=== PATIENT | male | born 1995 | race Caucasian/White ===

== ENCOUNTER 2021-03-21 12:38 | Emergency (ER) | payer OTHER, BC ==
--- NOTE | 2021-03-21 12:47 | EDM.PDOC ---
ED HPI GENERAL MEDICAL PROBLEM - General Stated Complaint: SORE THROAT/COUGH Time Seen by Provider: 03/21/21 12:47 Source of Information: Reports: Patient History Limitations: Reports: No Limitations - History of Present Illness INITIAL COMMENTS - FREE TEXT/NARRATIVE: Patient comes the emergency department today with complaints of a sore throat for the past 5 days. Patient has had an itchy scratchy sore throat for the past couple of days. No difficulty breathing swallowing. He does have some sinus congestion and drainage as well. No ear pressure. No fever no chills. He has not been around anyone ill. He has not tried anything for his sore throat. Posterior Throat Pain Score (Numeric/FACES): 5 - Related Data Allergies Allergy/AdvReac Type Severity Reaction Status Date / Time pollen extracts Allergy Cough Verified 03/21/21 13:05 Home Meds: Home Meds Insulin Glargine,Hum.Rec.Anlog [Dominicbirdie Sofiesinai] 300 unit SQ ASDIRECTED 03/21/21 [History] ED ROS ENT - Review of Systems Review Of Systems: Comprehensive ROS is negative, except as noted in HPI. ED EXAM, ENT - Physical Exam Exam: See Below Exam Limited By: No Limitations General Appearance: Alert, WD/WN, No Apparent Distress (Iris Block) Eye Exam: Bilateral Eye: Normal Inspection Ears: Normal External Exam, Normal Canal, Normal TMs Nose: Nasal Discharge, Nasal Swelling, Other (Pale boggy swollen turbinates bilaterally. ) Mouth/Throat: Normal Gums, Normal Lips, Normal Teeth, Other (Posterior pharynx with mild injection cobblestoning and [id number]-[id number] vesicles consistent with postnasal drip.). No: Peritonsillar Mass, Pharyngeal Erythema, Tongue Swelling, Tonsillar Erythema, Tonsillar Exudates, Tonsillar Swelling, Trismus, Uvular Deviation, Uvular Edema Head: Atraumatic, Normocephalic Neck: Normal Inspection, Supple, Non-Tender, Full Range of Motion Respiratory/Chest: No Respiratory Distress, Lungs Clear, Normal Breath Sounds, No Accessory Muscle Use, Chest Non-Tender Cardiovascular: Normal Peripheral Pulses, Regular Rate, Rhythm GI/Abdominal: Normal Bowel Sounds, Soft (Male) Exam: Deferred Rectal (Males) Exam: Deferred Extremities: Normal Inspection, Normal Range of Motion, Normal Capillary Refill Neurological: Alert, Oriented, Normal Cognition, No Motor/Sensory Deficits Psychiatric: Normal Affect, Normal Mood Skin: Warm, Dry, Intact, Normal Color Course - Vital Signs Last Recorded V/S: Last Vital Signs Temp 99.4 F 03/21/21 12:43 Pulse 76 03/21/21 12:43 Resp 16 03/21/21 12:43 BP 115/70 03/21/21 12:43 Pulse Ox 98 03/21/21 12:43 - Orders/Labs/Meds Labs: Laboratory Tests 03/21/21 Range/Units 13:03 Group A Strep (PCR) Not detected (NOT DETECT) - Re-Assessments/Exams Free Text/Narrative Re-Assessment/Exam: 03/21/21 13:44 strep negative. Will treat for PND and sinusitis. The patient is comfortable with this plan and his questions answered. Departure - Departure Time of Disposition: 13:31 Disposition: Home, Self-Care 01 Clinical Impression: Sore throat, PND (post-nasal drip) Acute sinusitis Qualifiers: Sinusitis location: unspecified location Recurrence: not specified as recurrent Qualified Code(s): J01.90 - Acute sinusitis, unspecified - Discharge Information Instructions: Sinusitis, Adult, [id number], How to Perform a Sinus Rinse, [id number], Sore Throat, [id number] Additional Instructions: Tylenol and or Ibuprofen as needed for pain. Warm salt water gargles as needed for discomfort. OTC sore throat spray or Sucrets for sore throat. OTC nasal saline rinse twice daily. Then 10 minutes later. Flonase OTC 1 spray each nostril twice daily for a week. After a week decrease to 1 spray each nostril once a day and discontinue as needed. Return to the ED if new or worsening symptoms Follow up in the clinic as needed. Sepsis Event Note (ED) - Focused Exam Vital Signs: Vital Signs Temp Pulse Resp BP Pulse Ox 03/21/21 12:43 99.4 F 76 16 115/70 98
== END 2021-03-21 13:43 | disposition home or self-care (01) ==
LOC: VM.ED 12:38
DX: J02.9 Acute pharyngitis, unspecified (principal); J01.90 Acute sinusitis, unspecified; Z79.4 Long term (current) use of insulin; Z91.09 Other allergy status, other than to drugs and biological substances
CPT/HCPCS: 87651-QW; 99283